=== PATIENT | male | born 1970 | race Native Hawaiian/Other Pacific Islander ===

== ENCOUNTER 2022-09-02 21:05 | Inpatient (IN) | payer OTHER ==
[~2022-09-02] VITALS: Ht 139.7 cm; Wt 58.7 kg
[2022-09-02 21:05] VITALS: BP 102/71; TEMP 99.5
[2022-09-02 21:30] VITALS: BP 98/62
[2022-09-02 21:59] LABS: PLATELET COUNT 198 K/uL (142-355)
[2022-09-02 22:00] VITALS: BP 130/83
[2022-09-02 22:30] VITALS: BP 110/67
[2022-09-02 22:40] LABS: POTASSIUM 2.1 mmol/L (3.6-5.2)
[2022-09-02 23:00] VITALS: BP 104/77
[2022-09-03 04:00] VITALS: BP 94/46; TEMP 98.4
[2022-09-03 04:15] LABS: PLATELET COUNT 172 K/uL (142-355)
[2022-09-03 04:39] VITALS: BP 117/68; TEMP 98.7; Ht 139.7 cm; Wt 58.7 kg
[2022-09-03 05:12] LABS: POTASSIUM 2.2 mmol/L (3.6-5.2)
[2022-09-03 08:00] VITALS: BP 123/102; TEMP 99.8
[2022-09-03] MEDS ORDERED: ONDA4TAB3 PO (09:50)
[2022-09-03] MEDS ORDERED: ASPIRIN LOW DOS81 MG PO (09:51)
[2022-09-03] MEDS ORDERED: FURO20TA67 PO (09:51)
[2022-09-03] MEDS ORDERED: CLOP75TA2 PO (09:52)
[2022-09-03] MEDS ORDERED: ENTRESTO 24-261 TAB PO (09:52)
[2022-09-03] MEDS ORDERED: SPIRONOLACT25 MG PO (09:52)
[2022-09-03] MEDS ORDERED: METO25TA2 PO (09:53)
[2022-09-03] MEDS ORDERED: NOVOLOG MIX 70/30 PR SC (09:54)
[2022-09-03] MEDS ORDERED: LIPITOR40 MG PO (09:54)
[2022-09-03] MEDS ORDERED: ALBUTEROL108 MCG/AC INH (09:55)
[2022-09-03 12:00] VITALS: BP 114/55; TEMP 99.2
[2022-09-03 16:00] VITALS: BP 127/56; TEMP 98.6
[2022-09-03 20:00] VITALS: BP 117/58; TEMP 98.8
[2022-09-04] VITALS: BP 122/55; TEMP 98.7
[2022-09-04 04:00] VITALS: BP 114/55; TEMP 98.7
[2022-09-04 07:23] LABS: PLATELET COUNT 136 K/uL (142-355)
[2022-09-04 07:43] LABS: POTASSIUM 2.7 mmol/L (3.6-5.2)
[2022-09-04 08:00] VITALS: BP 112/65; TEMP 98.8
[2022-09-04] MEDS ORDERED: ALBUTEROL108 MCG/AC INH (11:26)
[2022-09-04] MEDS ORDERED: ASPIRIN LOW DOS81 MG PO (11:27)
[2022-09-04] MEDS ORDERED: CLOP75TA2 PO (11:27)
[2022-09-04] MEDS ORDERED: FURO20TA67 PO (11:27)
[2022-09-04] MEDS ORDERED: LIPITOR40 MG PO (11:27)
[2022-09-04] MEDS ORDERED: ONDA4TAB3 PO (11:28)
[2022-09-04] MEDS ORDERED: NOVOLOG MIX 70/30 PR SC (11:28)
[2022-09-04] MEDS ORDERED: METO25TA2 PO (11:28)
[2022-09-04] MEDS ORDERED: ENTRESTO 24-261 TAB PO (11:29)
[2022-09-04] MEDS ORDERED: SPIRONOLACT25 MG PO (11:29)
[2022-09-04 12:00] VITALS: BP 118/69; TEMP 97.9
[2022-09-04] MEDS ORDERED: K-TAB20 MEQ PO (13:24)
== END 2022-09-04 15:16 | disposition home or self-care (01) | DRG 392 ==
LOC: EDBD 21:05 → ED 21:05 → MED/SURG 23:00
PROVIDERS: ADMIT Internal Medicine; ATTEND Internal Medicine
DX: K52.89 Other specified noninfective gastroenteritis and colitis (principal); M54.59 Other low back pain; I50.9 Heart failure, unspecified; I48.91 Unspecified atrial fibrillation; F15.90 Other stimulant use, unspecified, uncomplicated; F12.90 Cannabis use, unspecified, uncomplicated; Z72.0 Tobacco use; E11.65 Type 2 diabetes mellitus with hyperglycemia; Z79.4 Long term (current) use of insulin
CPT/HCPCS: 36415; 80053; 80307; 81000; 83036; 83735; 84100; 84132; 85027; 99284; J1815; J2405; J3480; J3490